=== PATIENT | male | born 1950 | race Caucasian/White ===

== ENCOUNTER 2017-11-29 12:32 | Emergency (ER) | payer MEDICARE ==
[~2017-11-29] VITALS: Ht 167.6 cm; Wt 78.0 kg
[~2017-11-29 12:32] MED LIST: HYDR1TAB12 PO; MIRALAX PO; MOTRIN PO; OXYC5CAP2 PO; TAMS-11 PO; ZOLP-413 PO
[2017-11-29 12:43] VITALS: BP 122/68
[2017-11-29] MEDS ORDERED: KETOROLAC 30 MG/1 ML IVPush ONE (13:00)
[2017-11-29] MEDS ORDERED: DIAZEPAM 5 MG TABLET PO ONE (13:00)
[2017-11-29] MEDS ORDERED: DIAZEPAM 5 MG TABLET ONE (13:05)
[2017-11-29] MEDS ORDERED: KETOROLAC 30 MG/1 ML ONE (13:05)
== END 2017-11-29 14:30 | disposition home or self-care (01) ==
LOC: ED 13:23
DX: S29.012A Strain of muscle and tendon of back wall of thorax, initial encounter (principal); X58.XXXA Exposure to other specified factors, initial encounter; Y93.89 Activity, other specified; Y99.8 Other external cause status; Y92.59 Other trade areas as the place of occurrence of the external cause
CPT/HCPCS: 71046; 96374; 99284; J1885

== ENCOUNTER 2018-03-08 21:12 | Observation (INO) | payer MEDICARE ==
[~2018-03-08] VITALS: Ht 170.2 cm; Wt 86.0 kg
--- NOTE | 2018-03-08 21:16 | NUR ---
CODE NEURO PAGED AT [id number]. CT ROOM 2 READY AT [id number]
--- NOTE | 2018-03-08 21:19 | NUR ---
BSFS 94 BY Andreina JIMENEZ. PRIMARY RN JUSTINE NOTIFIED
[2018-03-08 21:29] LABS: BASOPHILS # (AUTO) 0.03 x10^3/uL (0-0.1); BASOPHILS % (AUTO) 0 % (0-1); EOSINOPHILS # (AUTO) 0.13 x10^3/uL (0-0.4); EOSINOPHILS % (AUTO) 2 % (1-7); LYMPHOCYTES # (AUTO) 3.23 x10^3/uL (1-3.4); LYMPHOCYTES % (AUTO) 37 % (22-44); MD NO; MEAN CORPUSCULAR HEMOGLOBIN 31.2 pg (27.5-34.5); MEAN CORPUSCULAR HGB CONC 34.4 g/dL (33.2-36.2); MEAN CORPUSCULAR VOLUME 90.7 fL (81-97); MEAN PLATELET VOLUME 7.3 fL (7.4-10.4); MONOCYTES # (AUTO) 0.82 x10^3/uL (0.2-0.8); MONOCYTES % (AUTO) 9 % (2-9); NEUTROPHILS # (AUTO) 4.57 x10^3/uL (1.8-6.8); NEUTROPHILS % (AUTO) 52 % (42-75); PLATELET COUNT 236 x10^3/uL (130-400); RED BLOOD COUNT 4.76 x10^6/uL (4.38-5.82); RED CELL DISTRIBUTION WIDTH 12.5 % (9.4-14.8)
[2018-03-08 21:43] LABS: INTERNATIONAL NORMALIZED RATIO 0.94 (0.93-1.1)
[2018-03-08] MEDS ORDERED: OMNIPAQUE 350 MG/ML, 100ML BOTTLE ONE (21:45)
--- NOTE | 2018-03-08 21:46 | NUR ---
NEURO EVAL COMPLETE FAMILY AND FRIEND AT BEDSIDE.
--- NOTE | 2018-03-08 22:20 | NUR ---
PT AT REST WITH VSS AT BEDSIDE. PT NEURO STATUS UNCHANGED SHORT TERM MEMORY REMAINS MOSTLY LOST TO TODAY AND EVENTS.
--- NOTE | 2018-03-08 22:32 | NUR ---
REPORT CALLED TO FLOOR PT READY TO GO.
[2018-03-08 23:12] VITALS: BP 150/84
[2018-03-09] MEDS ORDERED: ACETAMINOPHEN 325 MG TABLET PO PRN (01:30)
[2018-03-09] MEDS ORDERED: DOCUSATE 100 MG CAPSULE PO PRN (01:30)
[2018-03-09] MEDS ORDERED: ONDANSETRON 4 MG TABLET PO PRN (01:30)
[2018-03-09] MEDS ORDERED: LIDODERM 5% PATCH TD PRN (01:30)
[2018-03-09 01:32] VITALS: BP 150/84
[2018-03-09 03:30] VITALS: BP 116/60
[2018-03-09 05:30] VITALS: BP 121/67
[2018-03-09 07:30] VITALS: BP 139/74
[2018-03-09 08:54] LABS: ALANINE AMINOTRANSFERASE 30 U/L (12-78); ALBUMIN 3.7 g/dL (3.4-5.0); ANION GAP 9 mmol/L (5-15); CALCIUM 8.2 mg/dL (8.5-10.1); CHLORIDE 108 mmol/L (98-107); CREATININE 0.98 mg/dL (0.7-1.3)
[2018-03-09 08:59] LABS: ALKALINE PHOSPHATASE 68 U/L (45-117); BILIRUBIN,TOTAL 0.7 mg/dL (0.2-1.0); CHOL/HDL RATIO 2.7; CHOLESTEROL, TOTAL 168 mg/dL (140-239); HDL CHOL % 37 % (26-37); HDL CHOLESTEROL (DIRECT) 62 mg/dL (40-60); LDL CHOLESTEROL,CALCULATED 89 mg/dL (54-169); LDL/HDL RATIO 1.4 (0.5-3.0); TOTAL PROTEIN 7.2 g/dL (6.4-8.2); TRIGLYCERIDES 84 mg/dL (50-200); VLDL CHOLESTEROL 17 mg/dL (0-25)
[2018-03-09] MEDS ORDERED: ASPIRIN 81 MG TABLET CHEW PO/NG SCH (09:00)
[2018-03-09] MEDS ORDERED: LORazepam 2 MG/ML, 1ML ONE (10:34)
[2018-03-09] MEDS ORDERED: LORazepam 2 MG/ML, 1ML IVPush ONE (11:00)
[2018-03-09 11:38] VITALS: BP 116/70
[2018-03-09 13:20] VITALS: BP 122/73
[2018-03-09] MEDS ORDERED: ASPI81TA45 PO (14:15)
[2018-03-09] MEDS ORDERED: FLU VAC QS18-19(4YR UP)CEL/PF 0.5ML IM-VACC ONE (15:30)
== END 2018-03-09 16:00 | disposition home or self-care (01) ==
LOC: ED 22:17 → EDIP 22:18 → INTOOBSV 22:18 → 4WST 22:48 → DCLOUNGE 03-09 15:37
PROVIDERS: ADMIT Internal Medicine; ATTEND Internal Medicine
DX: G45.9 Transient cerebral ischemic attack, unspecified (principal); G45.4 Transient global amnesia; I35.1 Nonrheumatic aortic (valve) insufficiency; G89.29 Other chronic pain; N40.0 Benign prostatic hyperplasia without lower urinary tract symptoms; Z83.2 Family history of diseases of the blood and blood-forming organs and certain disorders involving the immune mechanism; Z23 Encounter for immunization
CPT/HCPCS: 36415; 70450; 70496; 70498; 70551; 80047; 80053; 80061; 82962; 83735; 84484; 85025; 85610; 85730; 90674; 93005; 93306; 93880; 96374; 97161; 97165; 97530; 99284; G0008; G0378; G8978; G8979; G8980; J2060; Q9967